=== PATIENT | male | born 2005 | race Caucasian/White ===

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

== ENCOUNTER → 2024-02-11 | Outpatient (CLI) | payer OTHER | LOC: LAB 07:56 → LAB SHORT 07:56 | DX: L60.2 Onychogryphosis (principal); B35.1 Tinea unguium | CPT/HCPCS: 88305; 88312 ==

== ENCOUNTER 2024-03-29 23:41 | Emergency (ER) | payer OTHER ==
[~2024-03-29] VITALS: Ht 182.9 cm; Wt 90.7 kg
[2024-03-30] MEDS ORDERED: Ketorolac Tromethamine 30mg Vial IM ONE (02:45)
[2024-03-30] MEDS ORDERED: Morphine Sulfate IR 15 MG Tab PO ONE (03:20)
[2024-03-30] MEDS ORDERED: Nicotine 21 MG PATCH TOP ONE (03:20)
[2024-03-30] MEDS ORDERED: CeFAZolin Sodium 2,000 MG in NS 100 ML IV ONE (03:45)
[2024-03-30] MEDS ORDERED: Ampicillin Sod/Sulbactam Sod 3 GM in NS 100 ML IV ONE (04:45)
[2024-03-30] MEDS ORDERED: Morphine Sulfate 4 MG/1 ML Injection IV ONE (04:50)
[2024-03-30] MEDS ORDERED: Ondansetron HCl 2 MG / ML 2ML Vial IV ONE (05:15)
[2024-03-30 07:45] VITALS: BP 124/60
[2024-03-30] MEDS ORDERED: HYDROmorphone HCl/Pf 1MG SYR IV ONE (07:50)
== END 2024-03-30 07:59 | disposition short-term general hospital (02) ==
LOC: ER 23:41
DX: S02.642B Fracture of ramus of left mandible, initial encounter for open fracture (principal); F17.290 Nicotine dependence, other tobacco product, uncomplicated; Y04.8XXA Assault by other bodily force, initial encounter; Z88.0 Allergy status to penicillin; Z91.030 Bee allergy status
CPT/HCPCS: 70486; 96372; 96374; 96375; 99285; A9270; J0295; J0690; J1170; J1885; J2270; J2405

== ENCOUNTER 2025-01-20 17:12 | Emergency (ER) | payer OTHER ==
[~2025-01-20] VITALS: Ht 182.9 cm; Wt 70.3 kg
[2025-01-20 17:56] VITALS: BP 143/83
[2025-01-20] MEDS ORDERED: CEPH500 PO (19:11)
== END 2025-01-20 19:30 | disposition home or self-care (01) ==
LOC: ER 17:12
DX: S90.211A Contusion of right great toe with damage to nail, initial encounter (principal); W20.8XXA Other cause of strike by thrown, projected or falling object, initial encounter; Y99.0 Civilian activity done for income or pay; Z88.0 Allergy status to penicillin; Z91.030 Bee allergy status; F17.200 Nicotine dependence, unspecified, uncomplicated
CPT/HCPCS: 11740; 73660; 99283-25

== ENCOUNTER 2025-03-25 15:24 | Emergency (ER) | payer OTHER ==
[~2025-03-25] VITALS: Ht 182.9 cm; Wt 81.7 kg
[~2025-03-25 15:24] MED LIST changes: +CEPH500 PO
[2025-03-25 15:48] VITALS: BP 129/84
[2025-03-25] MEDS ORDERED: Mupirocin22 GM TOP (15:56)
[2025-03-25] MEDS ORDERED: ALEVAZOL56.7 G1 TOP (15:56)
== END 2025-03-25 15:55 | disposition home or self-care (01) ==
LOC: ER 15:24
DX: R21 Rash and other nonspecific skin eruption (principal); F17.290 Nicotine dependence, other tobacco product, uncomplicated; Z88.0 Allergy status to penicillin; Z91.030 Bee allergy status
CPT/HCPCS: 99282